=== PATIENT | male | born 1965 | race Caucasian/White ===

== ENCOUNTER 2016-11-20 02:41 | Emergency (ER) | payer SELFPAY ==
[~2016-11-20] VITALS: Ht 175.3 cm; Wt 113.4 kg
[2016-11-20 02:41] VITALS: BP 163/128; PULSE 103; RESP 28; TEMP 97.7; O2SAT 98
[~2016-11-20 02:41] MED LIST: ASPI81TA2 PO; COR25 PO; FURO-149 PO; LISI-217 PO; LISI-600 PO
--- NOTE | 2016-11-20 02:41 | NUR ---
Patient to ER bed 1 to gown for evaluation. Side rails up. Report given to ARIEL MUIR.
--- NOTE | 2016-11-20 02:45 | NUR ---
Pt c/o SOB since yesterday. (Pt has hx of CHF). Reports it has been progressively getting worse, which is what brings pt in today. Pt also c/o /10 pain to flanks. Pt diaphoretic. Denies chest pain, denies n/v. BP elevated 163/128. Mild distress noted. Pt SPO2 @ 98%. Will continue to monitor.
--- NOTE | 2016-11-20 02:50 | NUR ---
ER Dr. Verma at bedside examining patient.
--- NOTE | 2016-11-20 02:55 | NUR ---
# 22 gauge angiocath placed to R hand. Use of asceptic technique. Opsite placed over site. Blood return noted. Flushed with 10 cc of normal saline. No evidence of infiltration noted. Patient tolerated well.
--- NOTE | 2016-11-20 02:55 | NUR ---
# 22 gauge angiocath placed to right hand. Use of asceptic technique. Opsite placed over site. Blood return noted. Blood for lab drawn from site. Flushed with 10 cc of normal saline. No evidence of infiltration noted. Patient tolerated well.
[2016-11-20] MEDS ORDERED: CAPTOPRIL 12.5 MG TABLET PO ONE (03:00)
[2016-11-20] MEDS ORDERED: FUROSEMIDE 40 MG/4 ML VIAL IVP ONE (03:00)
[2016-11-20] MEDS ORDERED: NITROGLYCERIN LINGUAL 400 mCg/SPRAY TL ONE (03:00)
[2016-11-20 03:06] LABS: ABG TOTAL HEMOGLOBIN 14.8 G/dL (12.0-18.0); BLOOD GAS BASE EXCESS 0.9 mmol/L (-3.0-3.0); BLOOD GAS COHb% 0.8 % (0.5-1.5); BLOOD GAS HHB 6.6 % (0.0-6.0); BLOOD O2Hb% 92.3 % (94.0-97.0)
[2016-11-20 03:17] LABS: BASOPHILS % (AUTO) 0.5 % (0.0-2.0); EOSINOPHILS # (AUTO) 0.2 K/uL (0.0-0.4); EOSINOPHILS % (AUTO) 2.4 % (0.0-4.0); HEMOGLOBIN 14.6 g/dL (14.0-18.0); LYMPHOCYTES # (AUTO) 1.6 K/uL (1.0-5.5); LYMPHOCYTES % (AUTO) 24.7 % (20.5-51.5); MEAN CORPUSCULAR HEMOGLOBIN 29 pg (27-31); MEAN CORPUSCULAR HGB CONC 33 % (32-36); MEAN CORPUSCULAR VOLUME 88 fL (79.0-98.0); MONOCYTES # (AUTO) 0.3 K/uL (0.0-1.0); MONOCYTES % (AUTO) 4.2 % (1.7-9.3); NEUTROPHILS # (AUTO) 4.2 K/uL (1.8-7.7); NEUTROPHILS % (AUTO) 68.2 % (40.0-70.0); PLATELET COUNT (AUTO) 195 K/uL (130-430); RED BLOOD CELL COUNT(AUTO) 4.98 MIL/uL (4.2-6.2); RED CELL DISTRIBUTION WIDTH 13.3 % (9.0-15.0); WHITE BLOOD COUNT (AUTO) 6.3 K/uL (4.8-10.8)
--- NOTE | 2016-11-20 03:21 | NUR ---
RT bedside placing BIPAP on pt.
[2016-11-20 03:50] LABS: CALCIUM 8.9 mg/dL (8.4-11.0); CREATININE 1.63 mg/dL (0.55-1.30)
[2016-11-20 03:55] LABS: ALBUMIN 3.4 g/dL (3.4-4.8); TOTAL BILIRUBIN 0.5 mg/dL (0.0-1.0); TOTAL PROTEIN, SERUM 6.8 g/dL (6.4-8.3)
[2016-11-20 03:58] LABS: BILIRUBIN,URINE NEGATIVE (NEGATIVE); BLOOD, URINE NEGATIVE (NEGATIVE); CLARITY/URINE CLEAR (CLEAR); COLOR,URINE YELLOW (YELLOW); GLUCOSE,URINE NEGATIVE (NEGATIVE); KETONES,URINE NEGATIVE (NEGATIVE); LEUKOCYTE ESTERASE ,URINE NEGATIVE (NEGATIVE); NITRITE, URINE NEGATIVE (NEGATIVE); PROTEIN URINE NEGATIVE (NEGATIVE); UROBILINOGEN,URINE 0.2 (0.2-1.0)
[2016-11-20] MEDS ORDERED: POTASSIUM CHLORIDE 20 MEQ TAB.PRT.SR PO ONE (04:30)
[2016-11-20] MEDS ORDERED: LABETALOL 100 MG/ 20ML VIAL IVP ONE (04:45)
--- NOTE | 2016-11-20 04:46 | NUR ---
labenolol 20 MG IV given per MD Verma order, BP 119/78 HR 70, O2 96% on RA. MD Verma aware, stated to continue monitoring pt's BP
[2016-11-20 05:15] VITALS: BP 127/79; PULSE 71; RESP 24; TEMP 97.7; O2SAT 99
--- NOTE | 2016-11-20 05:15 | NUR ---
Patient given written and verbal discharge instructions and verbalizes understanding. ER MD discussed with patient the results and treatment provided. Given copies of tests performed in ER. Patient in stable condition. ID arm band removed. IV catheter removed intact and dressing applied, no active bleeding. Rx of Lasix 40 mg and lisinopril tab given. Patient educated on pain management and to follow up with PMD. Pain Scale 0/10. Opportunity for questions provided and answered.
== END 2016-11-20 05:15 | disposition home or self-care (01) ==
LOC: SED 02:41
DX: I13.0 Hypertensive heart and chronic kidney disease with heart failure and stage 1 through stage 4 chronic kidney disease, or unspecified chronic kidney disease (principal); N18.9 Chronic kidney disease, unspecified; I50.9 Heart failure, unspecified; E87.6 Hypokalemia; E66.01 Morbid (severe) obesity due to excess calories; Z68.36 Body mass index [BMI] 36.0-36.9, adult
CPT/HCPCS: 36415; 36600; 71010; 80053; 81003; 82803; 83605; 83874; 83880; 84484; 85025; 85610; 85730; 87040; 87086; 93005; 96374; 96375; 99285; J1940; J3490

== ENCOUNTER 2017-03-24 15:58 | Emergency (ER) | payer MEDICAID ==
[~2017-03-24] VITALS: Ht 175.3 cm; Wt 117.9 kg
[~2017-03-24 15:58] MED LIST changes: -LISI-217 PO
[2017-03-24 16:00] VITALS: BP_SYST 137
[2017-03-24] MEDS ORDERED: MORPHINE SULFATE 10 MG/ML VIAL IM ONE (16:45)
[2017-03-24] MEDS ORDERED: cefTRIAXone 1 GM VIAL IM ONE (16:45)
[2017-03-24] MEDS ORDERED: DIPHENHYDRAMINE INJ 50 MG/ML VIAL IM ONE (16:45)
== END 2017-03-24 17:50 | disposition left against medical advice (07) ==
LOC: SED 15:58
DX: K08.89 Other specified disorders of teeth and supporting structures (principal); I10 Essential (primary) hypertension; Z53.20 Procedure and treatment not carried out because of patient's decision for unspecified reasons
CPT/HCPCS: 99281